=== PATIENT | female | born 1950 | race Caucasian/White ===

== ENCOUNTER 2025-04-16 13:55 | Inpatient (IN) ==
[2025-04-16] MEDS ORDERED: IOPAMIDOL 100 ML BOTTLE IV ONE (13:56)
[2025-04-16] MEDS: IPRATROPIUM/ALBUTEROL 3 ML AMPUL.NEB NEB ONE (14:42)
[2025-04-16 15:12] LABS: Basophils # (Auto) 0.03 K/mcL (0.00-0.30); Basophils % (Auto) 0.4 % (0.0-2.0); Eosinophils # (Auto) 0.04 K/mcL (0.00-0.70); Eosinophils % (Auto) 0.5 % (0.0-7.0); Hematocrit 34.0 % (34.1-44.9); Hemoglobin 10.1 g/dL (11.2-15.7); Lymphocytes # (Auto) 0.33 K/mcL (1.50-4.80); Lymphocytes % (Auto) 4.5 % (15.5-49.0); Mean Corpuscular HGB Conc 29.7 g/dL (31.0-36.0); Monocytes # (Auto) 0.31 K/mcL (0.10-0.90); Monocytes % (Auto) 4.2 % (1.0-12.0); Neutrophils % (Auto) 90.1 % (38.0-78.0); Platelet Count 354 K/mcL (140-440); RBC 3.39 M/mcL (3.59-5.38); WBC 7.4 K/mcL (4.5-11.0)
[2025-04-16 15:29] LABS: Anion Gap 20.0 (8.0-16.0); Blood Urea Nitrogen 21 mg/dL (8-23); Calcium 10.7 mg/dL (8.6-10.4); Carbon Dioxide 22 mmol/L (22-30); Chloride 95 mmol/L (96-108); Glucose 230 mg/dL (70-105); Potassium 5.6 mmol/L (3.3-5.1); Sodium 137 mmol/L (133-145)
[2025-04-16] MEDS ORDERED: SODIUM POLYSTYRENE SULFONATE 15 GM/60 ML SUSPENSION PO ONE (15:53)
[2025-04-16] MEDS: ALBUTEROL SULFATE 2.5 MG/3 ML NEBULIZER NEB ONE (15:57)
[2025-04-16] MEDS: SODIUM POLYSTYRENE SULFONATE 15 GM/60 ML SUSPENSION PO ONE ×2 (15:58→19:07)
[2025-04-16] MEDS: 0.9 % SODIUM CHLORIDE 1,000 ML IV ONE ×2 (16:36→16:37)
[2025-04-16] MEDS: FUROSEMIDE 40 MG/4 ML VIAL IV ONE (17:03)
[2025-04-16 18:45] LABS: Anion Gap 17.0 (8.0-16.0); Blood Urea Nitrogen 19 mg/dL (8-23); Calcium 9.6 mg/dL (8.6-10.4); Carbon Dioxide 21 mmol/L (22-30); Chloride 99 mmol/L (96-108); Glucose 217 mg/dL (70-105); Potassium 5.3 mmol/L (3.3-5.1); Sodium 137 mmol/L (133-145)
[2025-04-16] MEDS: APIXABAN 5 MG TABLET PO ONE ×2 (19:53→20:51)
[2025-04-16] MEDS ORDERED: DEXTROSE 31 GM ORAL.SUSP PO PRN (20:45)
[2025-04-16] MEDS ORDERED: ALBUTEROL SULFATE 2.5 MG/3 ML NEBULIZER NEB PRN (20:45)
[2025-04-16] MEDS ORDERED: DEXTROSE 50% 50 ML VIAL IV PRN (20:45)
[2025-04-16] MEDS ORDERED: SODIUM POLYSTYRENE SULFONATE 15 GM/60 ML SUSPENSION PO SCH (21:00)
[2025-04-16] MEDS: INSULIN LISPRO 1 UNIT/0.01 ML UNIT SQ SCH (21:21)
[2025-04-17] MEDS: IPRATROPIUM/ALBUTEROL 3 ML AMPUL.NEB NEB SCH (00:55)
[2025-04-17 06:26] LABS: ALT/SGPT 15 U/L (<40); AST/SGOT 16 U/L (<32); Albumin 3.2 gm/dL (3.2-5.2); Albumin/Globulin Ratio 1.3 (1.0-2.3); Alkaline Phosphatase 37 U/L (39-117); Anion Gap 14.0 (8.0-16.0); Bilirubin,Direct < 0.2 mg/dL (0-0.3); Bilirubin,Total < 0.2 mg/dL (0.1-1.0); Blood Urea Nitrogen 18 mg/dL (8-23); Calcium 9.7 mg/dL (8.6-10.4); Carbon Dioxide 26 mmol/L (22-30); Chloride 98 mmol/L (96-108); Globulin 2.4 gm/dL (2.2-3.7); Glucose 186 mg/dL (70-105); Phosphorous 2.9 mg/dL (2.5-4.5); Potassium 4.2 mmol/L (3.3-5.1); Sodium 138 mmol/L (133-145); Triglycerides 38 mg/dL (<150); Uric Acid 6.6 mg/dL (2.5-8.0)
[2025-04-17] MEDS ORDERED: IPRATROPIUM/ALBUTEROL 3 ML AMPUL.NEB NEB PRN (07:14)
[2025-04-17] MEDS ORDERED: IPRATROPIUM BROMIDE 0.02% INHALATION PRN (07:14)
[2025-04-17] MEDS ORDERED: ALBUTEROL SULFATE 60 PUFF INHALER INH PRN (07:14)
[2025-04-17] MEDS ORDERED: ALBUTEROL SULFATE 2.5 MG/3 ML NEBULIZER NEB PRN (07:14)
[2025-04-17] MEDS: APIXABAN 5 MG TABLET PO SCH (07:36)
[2025-04-17] MEDS: CEPHALEXIN 500 MG CAPSULE PO SCH (07:36)
[2025-04-17] MEDS: ASCORBIC ACID 500 MG TABLET PO SCH (08:16)
[2025-04-17] MEDS: FUROSEMIDE 20 MG TABLET PO SCH (08:18)
[2025-04-17] MEDS: ALLOPURINOL 100 MG TABLET PO SCH (08:18)
[2025-04-17] MEDS: DOXYCYCLINE HYCLATE 100 MG TABLET.ORL PO SCH (08:19)
[2025-04-17] MEDS: ATORVASTATIN 20 MG TABLET PO SCH (08:20)
[2025-04-17] MEDS: VERAPAMIL 120 MG TAB.XL.24H PO SCH (08:20)
[2025-04-17] MEDS: FLUTICASONE UMECLIDIN VILANTER INH SCH (08:25)
[2025-04-17] MEDS: INSULIN GLARGINE, HUMAN 1 UNIT/0.01 ML SQ SCH (08:28)
[2025-04-17] MEDS ORDERED: CEPHALEXIN 500 MG CAPSULE PO SCH (09:00)
[2025-04-17 14:17] VITALS: O2SAT 97
[2025-04-17 15:46] VITALS: TEMP 97.3
[2025-04-18] MEDS ORDERED: CEPHALEXIN 500 MG CAPSULE PO SCH ×2 (01:00)
== END 2025-04-17 15:35 | disposition home or self-care (01) | DRG 176 ==
LOC: ED 13:55 → ICU 20:40
PROVIDERS: ADMIT Internal Medicine; ATTEND Internal Medicine